=== PATIENT | male | born 1970 | race Caucasian/White ===

== ENCOUNTER 2016-12-31 13:41 | Inpatient (IN) | payer OTHER ==
[~2016-12-31] VITALS: Ht 175.3 cm; Wt 136.7 kg
[2016-12-31 15:04] LABS: BASOPHIL 0 % (0-2); EOSINOPHIL 0.1 % (0-5); HCT 44.6 % (42.0-52.0); HGB 15.7 g/dl (13.2-18.0); LYMPHOCYTE 2.2 % (15-48); MCH 30.2 pg (25.0-31.0); MCHC 35.2 g/dL (32.0-36.0); MCV 85.8 fL (78.0-100.0); MONOCYTE 2.9 % (0-12); MPV 9.6 fL (6.0-9.5); NEUTROPHIL 94.8 % (41-80); PLT 189 K/uL (150-400); RDW 13.3 % (11.5-14.0)
[2016-12-31 15:19] LABS: LACTIC ACID 1.6 mmol/L (0.5-2.2)
[2016-12-31 15:21] LABS: ALBUMIN 3.9 g/dL (3.5-5.0); BILIRUBIN - TOTAL 1.3 mg/dL (0.1-1.0); CREATININE 1.4 mg/dL (0.7-1.2); GLOBULIN (CALCULATION) 3.3 g/dL (2.2-4.2); POTASSIUM 3.8 mmol/L (3.5-5.1); TOTAL PROTEIN 7.2 g/dL (6.4-8.3)
[2016-12-31 15:27] LABS: BILIRUBIN 1+ mg/dL (NEGATIVE); BLOOD 1+ Ery/uL (NEGATIVE); CLARITY CLEAR (CLEAR); COLOR YELLOW (YELLOW); GLUCOSE (U) NORMAL (NORMAL); KETONE (U) NEGATIVE (NEGATIVE); LEUKOCYTES NEGATIVE Leu/uL (NEGATIVE); NITRITE NEGATIVE (NEGATIVE); PROTEIN 1+ mg/dL (NEGATIVE); SPECIFIC GRAVITY >=1.030 (1.001-1.030); pH 5.5 (5.0-9.0)
[2016-12-31 15:35] LABS: BACTERIA 3+; MUCOUS MODERATE
[2017-01-01 07:18] LABS: HCT 43.4 % (42.0-52.0); HGB 14.9 g/dl (13.2-18.0); MCH 29.8 pg (25.0-31.0); MCHC 34.3 g/dL (32.0-36.0); MCV 86.8 fL (78.0-100.0); MPV 9.8 fL (6.0-9.5); RDW 13.6 % (11.5-14.0); WBC 20.3 K/uL (4.0-10.5)
[2017-01-01 07:35] LABS: CREATININE 1.4 mg/dL (0.7-1.2); POTASSIUM 3.7 mmol/L (3.5-5.1)
[2017-01-02 06:09] LABS: HCT 36.2 % (42.0-52.0); HGB 12.6 g/dl (13.2-18.0); MCH 30.1 pg (25.0-31.0); MCHC 34.8 g/dL (32.0-36.0); MCV 86.6 fL (78.0-100.0); MPV 9.4 fL (6.0-9.5); RBC 4.18 M/uL (4.70-6.00); RDW 13.4 % (11.5-14.0); WBC 17.8 K/uL (4.0-10.5)
[2017-01-02 07:08] LABS: CREATININE 1.1 mg/dL (0.7-1.2); POTASSIUM 3.4 mmol/L (3.5-5.1)
[2017-01-03 05:16] LABS: HCT 36.3 % (42.0-52.0); HGB 12.5 g/dl (13.2-18.0); MCHC 34.4 g/dL (32.0-36.0); MCV 87.1 fL (78.0-100.0); MPV 9.8 fL (6.0-9.5); RBC 4.17 M/uL (4.70-6.00); RDW 13.4 % (11.5-14.0); WBC 15.7 K/uL (4.0-10.5)
[2017-01-03 06:13] LABS: POTASSIUM 3.6 mmol/L (3.5-5.1)
--- NOTE | 2017-01-03 09:40 | NUR ---
into assess pt noted redness and swelling outside markings made from previous shift- pt states he is not in pain just has tightness, pedal pulse is difficult to palpate due to amount of swelling pt states he has not had any drainage from scabbed area he did have some clear drainage from the back side of his calve pt states when injury occurred he did break skin and proceeded to swim in [place] for 2 days afterwards - DR NUNEZ NOTIFIED OF NOTED CHANGE - RECIEVED T.O. TO OBTAIN VENOUS DOPPLER AND BLOOD CULTURES X2 - PT MADE AWARE OF RECIEVED ORDERS
--- NOTE | 2017-01-03 17:43 | NUR ---
BED OBTAINED AT [facility] - REPORT GIVEN TO STAFF MEMBER ANDREA ON TRANSPORTATION CONTACTED AND PT TRANFERRED OUT
== END 2017-01-03 15:43 | disposition other institution (70) | DRG 872 ==
LOC: FER 13:41 → FMS 17:08
PROVIDERS: Internal Medicine; ADMIT Internal Medicine
DX: A41.9 Sepsis, unspecified organism (principal); T79.A22A Traumatic compartment syndrome of left lower extremity, initial encounter; I10 Essential (primary) hypertension; L03.116 Cellulitis of left lower limb; G47.33 Obstructive sleep apnea (adult) (pediatric); F17.210 Nicotine dependence, cigarettes, uncomplicated; Z88.0 Allergy status to penicillin
CPT/HCPCS: 36415; 71010; 80048; 80053; 80202; 81001; 83605; 85025; 85651; 87040; 87493; 93971; J2185; J2405; J3370